=== PATIENT | female | born 1965 | race Caucasian/White ===

== ENCOUNTER → 2016-11-28 | Outpatient (CLI) | payer OTHER | LOC: MRI 07:08 | DX: M48.06 Spinal stenosis, lumbar region (principal); M51.27 Other intervertebral disc displacement, lumbosacral region ==

== ENCOUNTER → 2017-02-08 | Outpatient (CLI) | payer OTHER | END | disposition home or self-care (01) | LOC: PAIN 07:07 | DX: M79.1 Myalgia (principal); M47.816 Spondylosis without myelopathy or radiculopathy, lumbar region; Z98.890 Other specified postprocedural states; F41.9 Anxiety disorder, unspecified; Z79.899 Other long term (current) drug therapy ==

== ENCOUNTER → 2017-03-31 | Outpatient (CLI) | payer OTHER ==
[~2017-03-31] MED LIST: GLUCOSAMINE HC500 MG PO; IBUPROFEN 200200 M1 PO; LANSOPRAZOLE30 MG PO; MOBIC15 MG PO; MSM500 MG PO; PROZAC10 MG PO
== END ==
LOC: RAD 01:12
DX: Z12.31 Encounter for screening mammogram for malignant neoplasm of breast (principal)